=== PATIENT | female | born 1985 ===

== ENCOUNTER 2021-09-15 09:50 | Day surgery (SDC) | payer OTHER | END 2021-09-15 14:35 | disposition home or self-care (01) | LOC: AMB-ENDOS 09:50 | PROVIDERS: ATTEND Internal Medicine Gastroenterology | DX: R19.4 Change in bowel habit (principal); K64.4 Residual hemorrhoidal skin tags; Z85.42 Personal history of malignant neoplasm of other parts of uterus; K59.09 Other constipation ==

== ENCOUNTER 2021-10-25 08:30 | Inpatient (IN) | payer OTHER ==
[~2021-10-25] VITALS: Ht 165.1 cm; Wt 93.0 kg
== END 2021-10-28 11:19 | disposition home or self-care (01) | DRG 735 ==
LOC: O/R 10-27 07:15 → SURH 10-27 08:30 → OB/GYN 10-27 20:01
PROVIDERS: ADMIT Obstetrics & Gynecology Gynecologic Oncology; ATTEND Obstetrics & Gynecology Gynecologic Oncology
PROC: 07TC4ZZ Resection of Pelvis Lymphatic, Percutaneous Endoscopic Approach (ICD-10-PCS; 2021-10-27)
PROC: 0UT94ZZ Resection of Uterus, Percutaneous Endoscopic Approach (ICD-10-PCS; 2021-10-27)
PROC: 0UT64ZZ Resection of Left Fallopian Tube, Percutaneous Endoscopic Approach (ICD-10-PCS; 2021-10-27)
PROC: 0UT14ZZ Resection of Left Ovary, Percutaneous Endoscopic Approach (ICD-10-PCS; 2021-10-27)
PROC: 0TN74ZZ Release Left Ureter, Percutaneous Endoscopic Approach (ICD-10-PCS; 2021-10-27)
PROC: 0UN94ZZ Release Uterus, Percutaneous Endoscopic Approach (ICD-10-PCS; 2021-10-27)
PROC: 0DNW4ZZ Release Peritoneum, Percutaneous Endoscopic Approach (ICD-10-PCS; 2021-10-27)
PROC: 07TD4ZZ Resection of Aortic Lymphatic, Percutaneous Endoscopic Approach (ICD-10-PCS; principal; 2021-10-27 13:30)
DX: N85.01 Benign endometrial hyperplasia (principal); N83.292 Other ovarian cyst, left side; Z20.822 Contact with and (suspected) exposure to COVID-19